=== PATIENT | female | born 1995 | race Hispanic/Latino ===

== ENCOUNTER 2021-05-04 00:18 | Inpatient (IN) | payer OTHER ==
[2021-05-04] MEDS ORDERED: ceFAZolin 2 GM/Dextrose 50 ML IVPB ONE (00:50)
[2021-05-04] MEDS ORDERED: Azithromycin 500 MG VIAL ONE (00:50)
[2021-05-04] MEDS ORDERED: Fentanyl 250 MCG/5 ML VIAL ONE (00:53)
[2021-05-04] MEDS ORDERED: Oxytocin 10 UNITS/ML VIAL ONE ×2 (00:53→01:00)
[2021-05-04] MEDS ORDERED: PROPOFOL 200 MG/20 ML VIAL ONE (01:00)
[2021-05-04] MEDS ORDERED: ePHEDrine Sulfate 50 MG/10 ML VIAL ONE (01:00)
[2021-05-04] MEDS ORDERED: PHENYLEPHRINE-NS 100 MCG/ML 10 ML SYRINGE ONE (01:00)
[2021-05-04] MEDS ORDERED: Succinylcholine 200 MG/10 ml SYRINGE FS ONE (01:00)
[2021-05-04] MEDS ORDERED: Bicitra 30 ML UDCUP PO PRN (01:08)
[2021-05-04] MEDS ORDERED: hydrALAZINE 20 MG/ML VIAL SLOW IVP PRN ×2 (01:08→05:23)
[2021-05-04] MEDS ORDERED: Famotidine/PF 20 mg/2ml Vial SLOW IVP PRN (01:08)
[2021-05-04] MEDS ORDERED: Ondansetron PF 4 MG/2 ML Vial IVP PRN ×2 (01:08→02:13)
[2021-05-04] MEDS ORDERED: Promethazine HCl 25 MG/ML VIAL IM PRN ×3 (01:08→05:23)
[2021-05-04] MEDS ORDERED: ceFAZolin 2 GM/Dextrose 50 ML 2 GM in Premix Bag 1 BAG IVPB SCH (01:15)
[2021-05-04] MEDS ORDERED: Lactated Ringer's 1,000 ML IV SCH (01:15)
[2021-05-04] MEDS ORDERED: Rocuronium Bromide 10 MG/ML (10ML VIAL) ONE (01:22)
[2021-05-04] MEDS ORDERED: Dexamethasone 4 mg/ml Vial ONE (01:39)
[2021-05-04] MEDS ORDERED: Ondansetron PF 4 MG/2 ML Vial ONE (01:39)
[2021-05-04 01:41] LABS: RapidComm Collect By CBN
[2021-05-04] MEDS ORDERED: Glycopyrrolate 0.2 MG/ML 5 ML SYRINGE ONE (01:43)
[2021-05-04] MEDS ORDERED: diphenhydrAMINE 50 MG/ML VIAL IVP PRN (02:13)
[2021-05-04] MEDS ORDERED: diphenhydrAMINE 25 MG CAP PO PRN ×2 (02:13→05:23)
[2021-05-04] MEDS ORDERED: Naloxone HCl 0.4 mg/ml Vial IV PRN (02:13)
[2021-05-04] MEDS ORDERED: Zolpidem Tartrate 5 MG TAB PO PRN (02:13)
[2021-05-04] MEDS ORDERED: diphenhydrAMINE 50 MG/ML VIAL IM PRN (02:13)
[2021-05-04] MEDS ORDERED: Ketorolac Tromethamine 30 MG/ML VIAL IVP PRN (02:13)
[2021-05-04] MEDS ORDERED: fentaNYL Citrate/PF 2,000 MCG in Sodium Chloride 0.9% 60 ML IV PRN (02:13)
[2021-05-04] MEDS ORDERED: Communication Order-Pharmacy FS PRN (02:15)
[2021-05-04 02:20] LABS: Hep B Surf Ag Non-Reactive S/CO (NonReactive); Syphilis Antibody Nonreactive (Nonreactive); Syphilis Antibody Index 0.03 S/CO (<1.00 Non-Reactive)
[2021-05-04 02:21] LABS: Hemoglobin 5.8 g/dL (12.0-15.5); Mean Corpuscular HGB CONC 27.6 g/dL (32.0-36.0); Mean Corpuscular Hemoglobin 18.2 pg (27.0-33.0); Mean Corpuscular Volume 65.8 fl (81.6-98.3); Mean Platelet Volume 10.8 fl (7.4-10.4); Platelet Count 299 10x3/uL (150-450); RBC Distribution Width 20.9 % (11.5-14.5); Red Blood Cell (RBC) Count 3.19 10x6/uL (3.90-5.03); White Blood Cell (WBC) Count 14.8 10x3/uL (3.5-10.5)
[2021-05-04 02:23] LABS: HBSAg Index 0.16 S/CO (0-0.99)
[2021-05-04] MEDS ORDERED: Ketorolac Tromethamine 30 MG/ML VIAL ONE (02:23)
[2021-05-04] MEDS: fentaNYL Citrate/PF 1,000 MCG, Admixture Fee 1 EACH in Sodium Chloride 0.9% 30 ML IV PRN ×2 (03:12→17:47)
[2021-05-04] MEDS: metroNIDAZOLE 500 MG in Premix Bag 1 BAG IVPB SCH ×3 (04:41→19:48)
[2021-05-04] MEDS ORDERED: Lanolin Ointment 7 GM TUBE TOP PRN (05:23)
[2021-05-04] MEDS ORDERED: Boostrix 0.5 ML (Tdap) VIAL IM ONE (05:23)
[2021-05-04] MEDS ORDERED: Acetaminophen 325 MG TAB PO PRN (05:23)
[2021-05-04] MEDS ORDERED: Simethicone Chewable 80 MG TAB PO PRN (05:23)
[2021-05-04] MEDS ORDERED: NS w/ Oxytocin 30 units 500 ML IV SCH (06:00)
[2021-05-04 06:09] LABS: SARS-CoV-2 NAA Rapid Test Not Detected (NotDetected)
[2021-05-04] MEDS: Ketorolac Tromethamine 30 MG/ML VIAL IVP SCH ×3 (08:22→19:47)
[2021-05-04] MEDS: ceFAZolin 2 GM/Dextrose 50 ML 2 GM in Premix Bag 1 BAG IVPB SCH ×2 (08:24→15:24)
[2021-05-04 09:15] VITALS: BMI 30.9
[2021-05-04 09:29] LABS: HIV (1/2) Antibody/Antigen Non-Reactive (NonReactive)
[2021-05-04] MEDS: Prenatal Vitamin 1 TAB PO SCH (10:31)
[2021-05-04] MEDS: Docusate 100 MG CAP PO SCH ×2 (10:31→20:47)
[2021-05-04] MEDS: Ferrous Sulfate 325 MG TAB PO SCH ×2 (10:31→20:47)
[2021-05-04 13:56] LABS: Mean Corpuscular HGB CONC 33.2 g/dL (32.0-36.0); Mean Corpuscular Hemoglobin 25.1 pg (27.0-33.0); Mean Corpuscular Volume 75.5 fl (81.6-98.3); Mean Platelet Volume 9.9 fl (7.4-10.4); Platelet Count 167 10x3/uL (150-450); RBC Distribution Width 21.2 % (11.5-14.5); Red Blood Cell (RBC) Count 3.59 10x6/uL (3.90-5.03); White Blood Cell (WBC) Count 21.4 10x3/uL (3.5-10.5)
[2021-05-04] MEDS: Ibuprofen 800 MG TAB PO SCH (22:41)
[2021-05-05] MEDS: ceFAZolin 2 GM/Dextrose 50 ML 2 GM in Premix Bag 1 BAG IVPB SCH ×3 (00:11→16:00)
[2021-05-05] MEDS: Ondansetron PF 4 MG/2 ML Vial IVP PRN ×3 (00:11→12:18)
[2021-05-05 04:09] LABS: Hemoglobin 7.6 g/dL (12.0-15.5); Mean Corpuscular HGB CONC 32.9 g/dL (32.0-36.0); Mean Corpuscular Hemoglobin 25.2 pg (27.0-33.0); Mean Corpuscular Volume 76.7 fl (81.6-98.3); Mean Platelet Volume 10.6 fl (7.4-10.4); Platelet Count 191 10x3/uL (150-450); RBC Distribution Width 21.8 % (11.5-14.5); Red Blood Cell (RBC) Count 3.01 10x6/uL (3.90-5.03); White Blood Cell (WBC) Count 16.9 10x3/uL (3.5-10.5)
[2021-05-05] MEDS: metroNIDAZOLE 500 MG in Premix Bag 1 BAG IVPB SCH ×3 (04:32→20:43)
[2021-05-05] MEDS ORDERED: Ibuprofen 800 MG TAB PO SCH (06:00)
[2021-05-05] MEDS: Ibuprofen 800 MG TAB PO SCH ×3 (06:10→21:46)
[2021-05-05] MEDS: Ferrous Sulfate 325 MG TAB PO SCH ×2 (08:32→20:43)
[2021-05-05] MEDS: Prenatal Vitamin 1 TAB PO SCH (08:32)
[2021-05-05] MEDS: Docusate 100 MG CAP PO SCH ×2 (08:32→20:43)
[2021-05-05] MEDS: Simethicone Chewable 80 MG TAB PO SCH ×2 (15:39→20:43)
[2021-05-05] MEDS: HYDROcodone/Acetaminophen 5/325 mg Tablet PO PRN ×2 (16:02→20:52)
[2021-05-06] MEDS: ceFAZolin 2 GM/Dextrose 50 ML 2 GM in Premix Bag 1 BAG IVPB SCH ×3 (00:20→16:31)
[2021-05-06] MEDS: HYDROcodone/Acetaminophen 5/325 mg Tablet PO PRN ×6 (00:20→22:02)
[2021-05-06] MEDS: Simethicone Chewable 80 MG TAB PO SCH ×4 (03:53→22:03)
[2021-05-06] MEDS: metroNIDAZOLE 500 MG in Premix Bag 1 BAG IVPB SCH ×2 (03:53→11:55)
[2021-05-06] MEDS: Ibuprofen 800 MG TAB PO SCH ×3 (05:18→22:03)
[2021-05-06] MEDS: Docusate 100 MG CAP PO SCH ×2 (08:28→22:03)
[2021-05-06] MEDS: Prenatal Vitamin 1 TAB PO SCH (08:28)
[2021-05-06] MEDS: Ferrous Sulfate 325 MG TAB PO SCH ×2 (08:34→22:03)
[2021-05-06] MEDS: Ondansetron PF 4 MG/2 ML Vial IVP PRN (10:42)
[2021-05-06] MEDS ORDERED: cloNIDine 0.1 MG TAB PO PRN (16:53)
[2021-05-06] MEDS: Cephalexin 500 MG CAP PO SCH (22:02)
[2021-05-06] MEDS: metroNIDAZOLE 500 MG TAB PO SCH (22:02)
[2021-05-07] MEDS: HYDROcodone/Acetaminophen 5/325 mg Tablet PO PRN ×3 (03:21→21:04)
[2021-05-07] MEDS: Ibuprofen 800 MG TAB PO SCH ×3 (05:06→21:03)
[2021-05-07] MEDS: Prenatal Vitamin 1 TAB PO SCH (07:43)
[2021-05-07] MEDS: Ferrous Sulfate 325 MG TAB PO SCH ×2 (07:43→21:03)
[2021-05-07] MEDS: metroNIDAZOLE 500 MG TAB PO SCH ×3 (07:43→21:03)
[2021-05-07] MEDS: Docusate 100 MG CAP PO SCH ×2 (07:43→21:03)
[2021-05-07] MEDS: Cephalexin 500 MG CAP PO SCH ×3 (07:44→21:03)
[2021-05-07 22:27] VITALS: BP 138/66; TEMP 98.9
== END 2021-05-07 21:15 | disposition home or self-care (01) | DRG 786 ==
LOC: CSHLD/OP 00:18 → CSHLD 00:47 → CSHPP 09:50 → CSHPED 05-05 07:30
PROVIDERS: ADMIT Family Medicine; ATTEND Family Medicine
PROC: 10D00Z1 Extraction of Products of Conception, Low, Open Approach (ICD-10-PCS; principal; 2021-05-04)
PROC: 30233N1 Transfusion of Nonautologous Red Blood Cells into Peripheral Vein, Percutaneous Approach (ICD-10-PCS; 2021-05-04)
PROC: 30233K1 Transfusion of Nonautologous Frozen Plasma into Peripheral Vein, Percutaneous Approach (ICD-10-PCS; 2021-05-04)
DX: O60.14X0 Preterm labor third trimester with preterm delivery third trimester, not applicable or unspecified (principal); O45.93 Premature separation of placenta, unspecified, third trimester; Z3A.36 36 weeks gestation of pregnancy; Z37.0 Single live birth; Z20.822 Contact with and (suspected) exposure to COVID-19; O34.211 Maternal care for low transverse scar from previous cesarean delivery; O76 Abnormality in fetal heart rate and rhythm complicating labor and delivery; O24.429 Gestational diabetes mellitus in childbirth, unspecified control
CPT/HCPCS: 36415; 36430; 51702; 72170; 82805; 85027; 86762; 86780; 86850; 86900; 86901; 87340; 87389; 88307; 99285; J0690; J1100; J1885; J2405; J2590; J2704; J3010; J3490; P9016; P9059; U0002

== ENCOUNTER 2024-11-06 08:40 | Outpatient (CLI) | payer OTHER | END 2024-11-06 08:41 | disposition home or self-care (01) | LOC: CSHMAMMO 08:40 | DX: N64.52 Nipple discharge (principal) | CPT/HCPCS: 77066; G0279 ==